=== PATIENT | female | born 1955 | race Caucasian/White ===

== ENCOUNTER → 2021-01-13 17:48 | Outpatient (CLI) | payer MEDICARE, BC, SELFPAY ==
--- NOTE | 2021-01-13 18:05 | MRI_ITS ---
EXAM: MR HEAD WITHOUT AND WITH INTRAVENOUS CONTRAST, INTERNAL AUDITORY CANAL PROTOCOL CLINICAL INDICATION: DIZZINESS TECHNIQUE: Multiplanar and multisequence MR images of the internal auditory canal were obtained without and with intravenous contrast. This report was created using Spinal Modulation report [employer] technology. CONTRAST: IV 11mL Dotarem COMPARISON: None. FINDINGS: CRANIAL NERVES: Normal appearing 7th and 8th cranial nerve. COCHLEA AND SEMICIRCULAR CANALS: Unremarkable. CEREBELLOPONTINE ANGLES: Unremarkable. No mass. BRAIN AND EXTRA-AXIAL SPACES: Increased FLAIR regions in the brain may signify early microvascular ischemic changes, a demyelinating process, vasculitis, or sequela related to migraines. No intra- or extra-axial hemorrhage. No intracranial mass or mass effect. Posterior fossa structures are unremarkable. Ventricles are appropriate for age. No hydrocephalus. Basal cisterns are patent. BONES/JOINTS: Unremarkable. No discrete lytic or blastic abnormalities. SINUSES: Unremarkable as visualized. Clear. MASTOID AIR CELLS: Unremarkable as visualized. Clear. ORBITS: Unremarkable as visualized. Both globes, extraocular muscles, optic nerves and retrobulbar fat appear unremarkable. MRI/Brain W/WO Contrast IMPRESSION: Increased FLAIR regions in the brain may signify early microvascular ischemic changes, a demyelinating process, vasculitis, or sequela related to migraines. Electronically Signed: Franko Galindo MD at 19:44 EDT , Service support ,
[2021-01-13 18:21] LABS: CREATININE FINGERSTICK 0.7 mg/dL (0.55-1.02); EGFR FINGERSTICK > 60.0000 mL/min (>60)
== END ==
PROVIDERS: PCP Student in an Organized Health Care Education/Training Program; Visit Provider Otolaryngology
DX: R42 Dizziness and giddiness (principal)
CPT/HCPCS: 70553; A9575

== ENCOUNTER 2021-06-09 07:47 | Outpatient (CLI) | payer MEDICARE, BC, SELFPAY ==
[2021-06-09 10:06] LABS: Hematocrit 42.6 % (37-47); Hemoglobin 14.2 g/dL (12.0-15.0); Mean Corp Hgb Conc 33.3 g/dL (32-36); Mean Corpuscular Volume 89.9 fL (81-99); Mean Platelet Vol. 12.8 fl (6.2-12.0); Platelet Count 143 K/mm3 (150-450); RBC Distribution Width CV 12.1 % (11.6-14.6); RBC Distribution Width SD 40.2 fl (35.1-43.9); Red Blood Count 4.74 M/mm3 (4.2-5.4); White Blood Count 5.6 K/mm3 (4.4-11.0)
[2021-06-09 10:32] LABS: Vitamin B12 308 pg/mL (211-911)
[2021-06-09 10:52] LABS: AST(SGOT) 22 U/L (15-37); Alanine Aminotransfer ALT/SGPT 22 U/L (13-56); Albumin, Serum 3.8 g/dL (3.2-5.0); Alkaline Phosphatase 52 U/L (45-117); Anion Gap 4 (5-15); BUN 17 mg/dL (7-18); BUN/Creat Ratio 19.4 RATIO (10-20); Calcium,Total 8.8 mg/dL (8.5-10.1); Chloride 106 mmol/L (98-107); Cholesterol 245 mg/dL (200); Creatinine, Serum 0.88 mg/dL (0.55-1.02); EST Glomerular Filtration Rate 68 mL/min (>60); Est Glom Filt Rate - Afr Amer 83 mL/min (>60); Globulin 3.7 g/dL (2.2-4.2); Glucose 86 mg/dL (74-106); High Density Lipoprotein 63 mg/dL; Potassium 3.8 mmol/L (3.5-5.1); Protein, Total 7.5 g/dL (6.4-8.2); Sodium Level 139 mmol/L (136-145); Thyroid Stim Hormone (TSH) 3.62 uIU/mL (0.358-3.74); Triglycerides 124 mg/dL; Very Low Density Lipoprotein 25 mg/dL (5-40)
[2021-06-23 16:00] LABS: Vitamin B1, Thiamine 99.4 nmol/L (66.5-200.0)
== END 2021-06-09 23:59 | disposition home or self-care (01) ==
PROVIDERS: PCP Student in an Organized Health Care Education/Training Program; Referring Provider Psychiatry & Neurology Neurology; Visit Provider Psychiatry & Neurology Neurology
DX: G31.84 Mild cognitive impairment of uncertain or unknown etiology (principal); H81.90 Unspecified disorder of vestibular function, unspecified ear; I67.89 Other cerebrovascular disease
CPT/HCPCS: 36415; 80053; 80061; 82607; 82746; 84425; 84443; 85027

== ENCOUNTER 2022-03-24 15:35 | Emergency (ER) | payer MEDICARE, BC, SELFPAY ==
[2022-03-24 15:37] VITALS: BP 138/88; PULSE 68; RESP 17; TEMP 36.3; O2SAT 96; BMI 24.6
--- NOTE | 2022-03-24 16:19 | EKG12_ITS ---
Test Reason : CP Blood Pressure : / mmHG Vent. Rate : 060 BPM Atrial Rate : 060 BPM P-R Int : 172 ms QRS Dur : 070 ms QT Int : 394 ms P-R-T Axes : 050 -14 030 degrees QTc Int : 394 ms Normal sinus rhythm Possible Left atrial enlargement Borderline ECG Confirmed by ISAC RAMIREZ, SUSANA ([id number]), slot editor EUGENE ROSS ([id number]) on 03/27/2022 11:48:57 AM Referred By: ZAIN Confirmed By:SUSANA CHAU MD
--- NOTE | 2022-03-24 16:21 | ED.VIS.CHEST ---
HPI History of Present Illness Chief Complaint: Chest Pain Informant: patient Narrative Narrative: Patient's had chest pain for about 2 weeks. She really woke up with pain mostly in the left lower back. It was sharp. It did radiate a little to the front under her left breast. It was worse with motion but also deep breaths. She does not think she is short of breath with it though. She states sometimes she feels as though she takes a shallower breaths to avoid it hurting her but she is not short of breath. The pain lessened after about 4 to 5 days but has never gone away. Is really not changing now. It is a little bit more in the front now than the back but overall in the same area. Exacerbating features are the same. No diaphoresis nausea vomiting. Her last trip was driving back from [place] at the end of November. This is close to a 3-month cut off of time. But she has no personal or family history of DVT or PE. She has no swelling or pain in her legs at any time. There is no family history of heart disease. She is non-smoker on no medications. She has no diabetes blood pressure or high cholesterol. Other than the pain in the lower left chest she feels perfectly fine. She contacted her physician that referred her in here. [facility] Medical History Osteoarthritis Osteopenia Osteoporosis Home Medications alendronate 70 mg tablet 70 mg PO QWEEK 04/04/21 [History Last Taken Unknown] calcium carbonate 600 mg calcium (1,500 mg) tablet (Calcium) 600 mg PO DAILY 04/04/21 [History Last Taken Unknown] cholecalciferol (vitamin D3) 50 mcg (2,000 unit) capsule 50 mcg PO DAILY 04/04/21 [History Last Taken Unknown] clobetasol 0.05 % topical ointment 1 applic topical QWEEK 04/04/21 [History Last Taken Unknown] multivitamin 1 tab PO DAILY 04/04/21 [History Last Taken Unknown] Allergy/AdvReac Type Severity Reaction Status Date / Time Sulfa (Sulfonamide Allergy Severe Rash Verified 03/24/22 15:36 Antibiotics) naproxen [From Aleve] Allergy Mild Itching Verified 03/24/22 15:36 hydroxychloroquine AdvReac Severe Diarrhea Verified 03/24/22 15:36 [From Plaquenil] meloxicam AdvReac Intermediate GI upset Verified 03/24/22 15:36 Family History Mother TIA (transient ischemic attack) Alzheimer disease Osteoporosis Son Crohn's disease Other Thyroid disorder Social History Smoking Status: Never smoker Electronic Cigarette Use: not used second hand exposure: No alcohol intake: current alcohol intake frequency: a few times a week Alcohol type: wine substance use type: does not use ROS ROS ED Constitutional Constitutional ED: Denies fever(s) or sweats Eyes Eyes: Denies blurry vision ENT ENT ED: Denies rhinorrhea or sore throat Cardiovascular Cardiovascular: Reports as per HPI Respiratory/Chest Respiratory/Chest: Denies cough or dyspnea Gastrointestinal Gastrointestinal: Denies nausea or vomiting Genitourinary Genitourinary ED: Denies hematuria Musculoskeletal Musculoskeletal: Denies arthralgias, back pain or neck pain Integumentary Denies rash Neurologic Neurologic: Denies headache(s), paresthesias or weakness Psychiatric Psychiatric: Denies anxiety Endocrine Endocrinology: Denies polydipsia or polyuria Hematologic/Lymphatic Hematologic/Lymphatic: Denies easy bleeding or easy bruising Allergic/Immunologic Allergic/Immunologic ED: Denies urticaria EXAM Physical Exam Const Vital Signs: 03/24/22 15:37 Temperature 97.3 F L Temperature Source Temporal Pulse Rate 68 Respiratory Rate 17 Blood Pressure 138/88 H Blood Pressure Mean 104 Pulse Ox 96 Oxygen Delivery Method Room Air Positive well nourished Constitutional Narrative: Patient sitting calmly and quietly in the bed. She carries on normal conversation. She does not look dyspneic. General Appearance ED: NAD HEENT Reports moist mucous membranes Eyes General Eye ED: Negative for scleral icterus Neck supple and no JVD Chest Wall inspection of chest normal and palpation of chest normal Resp normal respiratory effort and clear to auscultation bilaterally Auscultation: Negative for rales, rhonchi or wheezes Cardio regular rate, regular rhythm and no murmurs GI normal to inspection, nondistended, normoactive bowel sounds Back/Spine no CVA tenderness and no thoracic nor lumbar tenderness Extremity normal to inspection Extremity Narrative: No edema cords tenderness or distended veins. No asymmetry General Extremety ED: Negative for edema or pulses abnormal General Extremity: Negative for edema or pulses abnormal Neuro Sensorium / Orientation: awake and alert Psych mental status grossly normal Skin no rashes or lesions noted MDM MDM MDM Narrative Medical decision making narrative: My independent interpretation of the patient's single view chest x-ray shows no acute process. Cardiac silhouette looks normal. I see no sign of pneumothorax or infiltrate. There is slight rotation of the film. Final reading by radiology also shows no acute process. Patient's blood work was reviewed and she has a normal CBC. D-dimer is negative. Troponin is negative. Electrolytes show no acute process. Patient has had symptoms for 2 weeks. It seems musculoskeletal as it is very reproduced with motion. However breathing also made it worse. But she is not tachycardic tachypneic or hypoxic and she has a negative D-dimer with no significant risk factor for DVT or PE. I think she is safe for follow-up with her physician. If she has worsening or new symptoms she should return. Lab Data Labs: Laboratory Results - last 24 hr 03/24/22 03/24/22 03/24/22 16:43 16:43 16:43 WBC 6.4 RBC 4.89 Hgb 14.3 Hct 43.5 MCV 89.0 MCH 29.2 MCHC 32.9 RDW Std Deviation 39.8 RDW Coeff of Timmy 12.3 Plt Count 254 MPV 10.6 Immature Gran % (Auto) 0.200 Neut % (Auto) 50.1 Lymph % (Auto) 35.1 Arroyo % (Auto) 9.1 Eos % (Auto) 3.8 Baso % (Auto) 1.7 H Absolute Neuts (auto) 3.2 Absolute Lymphs (auto) 2.24 Nucleated RBC % 0 D-Dimer Quant (PE/DVT) < 0.27 L Sodium 140 Potassium 3.9 Chloride 108 H Carbon Dioxide 24.0 Anion Gap 8 BUN 15 Creatinine 0.88 Estim Creat Clear Calc 48.39 Est GFR (MDRD) Af Amer 82 Est GFR (MDRD) Non-Af 68 BUN/Creatinine Ratio 17.0 Glucose 89 Calcium 9.5 Troponin I High Sens < 3 L Radiography Diagnostic Testing: Clinical Impression(s) from Imaging Studies Chest X-Ray 03/24/22 16:50 IMPRESSION: No acute cardiopulmonary disease. Electronically Signed: Bharti Mcdaniels MD at 17:16 EST , EKG Initial EKG: Comments: My independent interpretation of the patient's EKG done for chest pain shows a normal sinus rhythm with overall rate of 60. No ectopy. No acute ST elevation or depression. OH interval, QRS duration and QTc are normal. Discharge Plan Triage Chief Complaint: Chest Pain ED Provider: Petar Matute Dx/Rx/DC Orders Clinical Impression: Left-sided chest pain Instructions: ED Chest Pain, Uncertain Cause Prescriptions: No Action alendronate 70 mg tablet 70 mg PO QWEEK clobetasol 0.05 % ointment 1 applic topical QWEEK multivitamin Tablet 1 tab PO DAILY calcium carbonate [Calcium 600] 600 mg calcium (1,500 mg) tablet 600 mg PO DAILY cholecalciferol (vitamin D3) 50 mcg (2,000 unit) capsule 50 mcg PO DAILY Primary Care Provider: Jorge L Russo Referrals: Jorge L Russo, DO [Primary Care Provider] - 3-5 Days if not improving Disposition Disposition: Home, Self Care
[2022-03-24 16:50] LABS: Absolute Lymphocyte Count 2.24 X10^3/uL (0.83-4.51); Absolute Neutrophil Count 3.2 X10^3/uL (2.0-7.7); Basophil# 0.11 X10^3/uL; Basophil% 1.7 % (0-1); Eosinophil# 0.24 X10^3/uL; Eosinophils% 3.8 % (0-5); Hematocrit 43.5 % (37-47); Hemoglobin 14.3 g/dL (12.0-15.0); Lymphocyte # 2.24 X10^3/ul (0.83-4.51); Lymphocyte % 35.1 % (19-41); Mean Corp Hgb Conc 32.9 g/dL (32-36); Mean Corpuscular Hgb 29.2 pg (27.0-32.0); Mean Platelet Vol. 10.6 fl (6.2-12.0); Monocyte# 0.58 X10^3/uL; Monocyte% 9.1 % (0-10); NRBC Flagged by Analyzer 0 % (0-5); Neutrophil % 50.1 % (47-70); Platelet Count 254 K/mm3 (150-450); RBC Distribution Width CV 12.3 % (11.6-14.6); RBC Distribution Width SD 39.8 fl (35.1-43.9); Red Blood Count 4.89 M/mm3 (4.2-5.4); White Blood Count 6.4 K/mm3 (4.4-11.0)
--- NOTE | 2022-03-24 16:50 | RAD_ITS ---
INDICATION: cp EXAMINATION/TECHNIQUE: X-RAY - XR Chest 1 View COMPARISON: None. FINDINGS: LINES/DEVICES: None. LUNGS: No consolidation, edema or effusion. No pneumothorax. MEDIASTINUM AND CARDIOVASCULAR STRUCTURES: Cardiac silhouette not enlarged. Central airways and mediastinal contour are unremarkable. BONES AND SOFT TISSUES: Mild thoracic dextrocurvature may be positional versus mild scoliosis. RAD/Chest 1 View (Portable) IMPRESSION: No acute cardiopulmonary disease. Electronically Signed: Bharti Mcdaniels MD at 17:16 EST Reading Location ID and State: [id number] / Tel , Service support ,
[2022-03-24 17:31] LABS: Anion Gap 8 (5-15); BUN 15 mg/dL (7-18); Calcium,Total 9.5 mg/dL (8.5-10.1); Chloride 108 mmol/L (98-107); Creatinine, Serum 0.88 mg/dL (0.55-1.02); EST Glomerular Filtration Rate 68 mL/min (>60); Est Glom Filt Rate - Afr Amer 82 mL/min (>60); Estimated Creatinine Clearance 48.39 ml/min; Glucose 89 mg/dL (74-106); Potassium 3.9 mmol/L (3.5-5.1); Sodium Level 140 mmol/L (136-145); Troponin-I HS < 3 pg/mL (3.0-54.0)
[2022-03-24 17:52] LABS: D-Dimer Quantitative (DVT/PE) < 0.27 FEU/ug/m (0.27-0.49)
[2022-03-24 19:13] VITALS: BP 130/82; PULSE 76; RESP 18; O2SAT 100
== END 2022-03-24 19:13 | disposition home or self-care (01) ==
PROVIDERS: Emergency Provider Emergency Medicine; PCP Student in an Organized Health Care Education/Training Program; Visit Provider Emergency Medicine
DX: R07.9 Chest pain, unspecified (principal)
CPT/HCPCS: 71045; 80048; 84484; 85025; 85379; 93005; 99284; A4216

== ENCOUNTER → 2022-07-04 | Outpatient (CLI) | payer MEDICARE, BC, SELFPAY ==
[2022-07-04 09:56] LABS: Hematocrit 45.7 % (37-47); Hemoglobin 14.8 g/dL (12.0-15.0); Mean Corp Hgb Conc 32.4 g/dL (32-36); Mean Corpuscular Hgb 29.5 pg (27.0-32.0); Mean Corpuscular Volume 91.2 fL (81-99); Mean Platelet Vol. 11.2 fl (6.2-12.0); Platelet Count 209 K/mm3 (150-450); RBC Distribution Width CV 12.2 % (11.6-14.6); RBC Distribution Width SD 40.5 fl (35.1-43.9); Red Blood Count 5.01 M/mm3 (4.2-5.4); White Blood Count 6.5 K/mm3 (4.4-11.0)
[2022-07-04 10:26] LABS: Cholesterol 254 mg/dL (200); High Density Lipoprotein 64 mg/dL; Triglycerides 136 mg/dL; Very Low Density Lipoprotein 27 mg/dL (5-40)
== END | disposition home or self-care (01) ==
LOC: MTLAB 07:39
PROVIDERS: PCP Student in an Organized Health Care Education/Training Program; Referring Provider Psychiatry & Neurology Neurology; Visit Provider Psychiatry & Neurology Neurology
DX: E78.5 Hyperlipidemia, unspecified (principal)
CPT/HCPCS: 36415; 80061; 85027